=== PATIENT | male | born 1980 | race Caucasian/White ===

== ENCOUNTER 2021-12-16 21:43 | Emergency (ER) | payer SELFPAY ==
[~2021-12-16] VITALS: Ht 190.5 cm; Wt 181.4 kg
[2021-12-16] MEDS ORDERED: OXYCODONE/APAP 5-325 MG TABLET PO ONE (22:15)
[2021-12-16] MEDS ORDERED: OXYCODONE/APAP 5-325 MG TABLET ONE (22:20)
--- NOTE | 2021-12-16 22:56 | NUR ---
pt placed in room 4a
[2021-12-16] MEDS ORDERED: ONDA4TAB5 PO (23:31)
[2021-12-16] MEDS ORDERED: OXYC-128 PO (23:31)
[2021-12-16] MEDS ORDERED: ONDA8TAB65 PO (23:31)
--- NOTE | 2021-12-17 00:14 | NUR ---
Patient discharged to home in stable condition. Written and verbal after care instructions given. Patient verbalizes understanding of instructions. Stressed follow up or return to ER for worsening s/s. pt ambulatory denies pain.
[2021-12-17 00:15] VITALS: BP 130/70
== END 2021-12-17 00:16 | disposition home or self-care (01) ==
LOC: ER 22:41
DX: S16.1XXA Strain of muscle, fascia and tendon at neck level, initial encounter (principal); S29.012A Strain of muscle and tendon of back wall of thorax, initial encounter; S61.012A Laceration without foreign body of left thumb without damage to nail, initial encounter; V49.49XA Driver injured in collision with other motor vehicles in traffic accident, initial encounter; Y92.414 Local residential or business street as the place of occurrence of the external cause
CPT/HCPCS: 71120; 72040; 72072; 73140; A4663